=== PATIENT | male | born 1980 | race African-American/Black ===

== ENCOUNTER 2025-09-11 08:57 | Outpatient (AMB) | payer MEDICAID, SELFPAY ==
--- NOTE | 2025-09-11 09:09 | MHC.OFFVISWM ---
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 Allergies Penicillins Allergy (Unknown, Verified 09/11/25 09:31) Unknown Medication List - Last Reconciled 09/11/25 by Karthik Pickett MD amlodipine-valsartan 5-320 mg 1 tab PO DAILY atorvastatin (Lipitor) 20 mg PO DAILY blood-glucose sensor (FreeStyle Ignacio 2 Plus Sensor device) As directed levothyroxine 25 mcg PO DAILY sitagliptin phos-metformin 50-1,000 mg (Janumet) 1 tab PO BID HPI Comments Details: Previous weight loss efforts: Intermittent fasting, exercise Wakes up: 7am, Sleeps: 11pm Breakfast: 9am (2 eggs with toast, harman) Lunch: 1pm (salad with chicken) Dinner: 6pm (meatloaf) Snacks: 4pm (apple, sandwich) Exercise: has gym membership Beverages: Coffee:1/wk, Tea: rarely, Soda: none, Juice: rarely, ETOH: 1/month (3 beers) PFSH Medical History (Updated 09/11/25 @ 10:03 by Karthik Pickett MD) Hypothyroidism Hyperlipidemia Hypertension BMI 36.0-36.9,adult Obesity Surgical History (Updated 08/13/25 @ 11:21 by Carla Esquivel CMA) No history of previous surgery Family History (Updated 08/13/25 @ 11:22 by Carla Esquivel CMA) Mother Diabetes Hypertension Father Hypertension Diabetes Daughter No problems noted. Social History (Updated 08/13/25 @ 11:22 by Carla Esquivel CMA) Alcohol intake: current Alcohol intake frequency: holidays/special occasions only Patient Tobacco Use Status: Never used Tobacco Physical Exam Vital Signs: Last Vital Signs Temp 97.9 F 09/11/25 09:11 Pulse 84 09/11/25 09:11 BP 143/85 H 09/11/25 09:11 Pulse Ox 98 09/11/25 09:11 Oxygen Delivery Method Room Air 09/11/25 09:11 BMI result Body Mass Index 36.3 GI Inspection: Yes normal to inspection (mixed body habitus) and Yes obesity Palpation (GI): Soft to palpation Extrem Right lower extremity: normal to inspection Left lower extremity: normal to inspection Assessment & Plan Assessment & Plan (1) Obesity: Code(s): E66.9 - Obesity, unspecified Category: Medical Qualifiers: Obesity type: due to excess calories Obesity classification: adult class 2 (BMI 35 - 39.9) Serious obesity comorbidity presence: with serious comorbidity Body mass index: BMI 36.0-36.9 Qualified Code(s): E66.01 - Morbid (severe) obesity due to excess calories; Z68.36 - Body mass index [BMI] 36.0-36.9, adult Plan: 1. As we discussed, based on your present BMI you are approximately 70lbs overweight. In my opinion, for any weight loss strategy to be successful should have a high probability to help you lose at least 60lbs out of 70lbs of the extra weight you carry. We discussed in detail the available therapeutic options: 1) our lifestyle intervention program that has an average weight loss of 10% in 3 months.?Some patients continue it for longer and have lost over 50lbs but this is not common. Our lifestyle program can be provided by me. I will provide you with a link to use the chery if you choose to do so. We use protein shakes and protein bars to replace some of the meals of the day and cover your appetite better. We will decide together the exact combination. 2) Weight loss medications: these can be used in conjunction with our lifestyle program or you may choose to use them without following a lifestyle program from my program but your own. As we discussed, your insurance would approve it because you have diabetes. The medication I use more often is called Mosumiro and is one shot per week. My office will do the authorizations and we will train you how to use it properly. As we discussed, this is not a long distance operator solution, as most patients put all the weight back once they are off the medication. 3) We also discussed about the lap sleeve gastrectomy. In my opinion this is the best option to solve your problem based on your situation and should be used in conjunction with the two previous options. A good strategy to make this decision to proceed with surgery, as soon as you achieve a specific goal with the lifestyle intervention and medication options: to lose least 10% of your initial weight in 3 months. ?I emphasized the importance of close follow-up, adherence to instructions and good communication. The surgery does not replace the need to change your lifestlyle which is the cause of the obesity problem. The surgery provides the motivation to try again to change your lifestyle, it reduces the appetite and make the transition to a better lifestyle easier and doubles the amount of weight you would lose compared to doing the lifestyle change without the surgery. You will need to be on a liquid diet with protein shakes for 2 weeks before surgery to maximize weight loss and boost your nutritional status to recover better from surgery and also for the first two weeks after surgery to let the stomach heal before we introduce other foods. After the first 2 weeks we will introduce protein bars and soft foods like scrambled eggs, cottage cheese and yogurt and after the 6th week will introduce meat, fish and cooked vegetables in small amounts. Over time you should be able to eat everything in small amounts. Side effects like nausea, vomiting, heartburn or abdominal pain are not common in the practice unless you are not following in the practice. This operation requires lifetime commitment to following in our practice and communication with me. You will much less weight and experience side effects if you don?t communicate or not following in the practice. Complications are rare and in our practice is about 1/10 of the national average.
[2025-09-11 09:11] VITALS: BP 143/85; PULSE 84; TEMP 36.6; O2SAT 98; BMI 36.3
--- OUTSIDE RECORDS SUMMARY | 2025-09-11 09:35 | XMS_ITS | Clinical Summary ---
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 Name Role Phone Unavailable Primary Care Provider Unavailabl e Social History Tobacco Use Types Packs/Day Years Used Date Smoking Tobacco: Never Assessed Sex and Gender Information Value Date Recorded Sex Assigned at Not on file Legal Sex Male 9:29 PM EDT Gender Identity Not on file Sexual Orientation Not on file Plan of Treatment Health Maintenance Due Date Last Done Comments Depression Screening 1982 Lipid Panel 1982 SDOH Screening 1982 Disability Screening 1982 Alcohol/Substance Use Screening 1994 Tobacco Screening 1994 Family Planning (PISQ) 1997 HPV Vaccines (1 - Male 3-dos e series) 1997 Hepatitis C Screening 2000 Hepatitis B Vaccines (1 of 3 - 19+ 3-dose series) 2001 COVID-19 Vaccine ( - 2023-2 5 season) 2025 Influenza Vaccine (#1) 2025 Zoster Vaccines (1 of 2) 2032 DTaP/Tdap/Td Vaccines (2 - T d or Tdap) 06/15/2035 06/15/2025 RSV Patients and Pa tients Aged 60 years or older (1 - 1-dose 75+ series) 2057 HIV Screening Completed 09/04/2022 Pneumococcal Vaccine: Pediat rics (0 to 5 Years) and At-Risk Patients (6 to 49) Years Aged Out 05/22/2024 No longer eligi ble based on patient's age to complete this topic HIB Vaccines Aged Out No longer eligi ble based on patient's age to complete this topic Hepatitis A Vaccines Aged Out No long er eligible based on patient's age to complete this topic IPV Vaccines Aged Out No longer eligi ble based on patient's age to complete this topic Meningococcal B Vaccine Aged Out No l onger eligible based on patient's age to complete this topic Meningococcal Vaccine Aged Out No marissa sukhdev eligible based on patient's age to complete this topic RSV under 20 months Aged Out No longe r eligible based on patient's age to complete this topic Rotavirus Vaccines Aged Out No longer eligible based on patient's age to complete this topic
== END 2025-09-11 10:12 | disposition home or self-care (01) ==
LOC: HO.HBS 08:58
PROVIDERS: PCP Nurse Practitioner Family; Visit Provider Surgery
DX: E66.01 Morbid (severe) obesity due to excess calories (principal); Z68.36 Body mass index [BMI] 36.0-36.9, adult
CPT/HCPCS: 99204

== ENCOUNTER → 2025-09-11 08:57 | Outpatient (BNVA) | payer MEDICAID, SELFPAY | PROVIDERS: PCP Nurse Practitioner Family; Visit Provider Surgery | DX: E66.01 Morbid (severe) obesity due to excess calories (principal); Z68.36 Body mass index [BMI] 36.0-36.9, adult | CPT/HCPCS: 99202 ==

== ENCOUNTER 2025-09-24 11:17 | Outpatient (REF) | payer MEDICAID, SELFPAY ==
--- NOTE | ~2025-09-24 | XR_ITS ---
EXAMINATION: XR CHEST CLINICAL INFORMATION: E66.01 - Morbid (severe) obesity due to excess calories COMPARISON: None available. TECHNIQUE: PA and lateral views. FINDINGS: No hyperinflation. No consolidation, pleural effusion or pneumothorax. Cardiomediastinal silhouette size is normal. Mild multilevel spondylosis and a shaped curvature of the mid thoracic spine. XR/XR chest 2V IMPRESSION: No acute airspace disease. Spondylosis and scoliosis, mild. Electronically signed by: Jose Cervantes MD 09/24/2025 11:53 AM [facility]
[2025-09-24 11:40] LABS: MANUAL DIFF FLAG NO
[2025-09-24 12:00] LABS: Hematocrit 44.2 % (42.0-52.0); Hemoglobin 15.3 g/dl (14.0-18.0); Imm Gran Abs Auto 0.04 X10*3/uL (0.00-0.03); Imm Gran Pct Auto 0.5 % (0.0-0.4); Lymphocytes Absolute Auto 1.9 X10*3/uL (1.2-4.9); Mean Corpuscular HGB Conc 34.6 g/dl (31.0-36.0); Mean Corpuscular Hemoglobin 29.9 pg (27.0-33.0); Mean Corpuscular Volume 86.5 fL (80.0-98.0); NRBC Abs Auto 0.000 X10*3/uL (0.0-0.012); NRBC Pct Auto 0.0 /100WBC (0.0-0.2); Platelet Count 344 X10*3/uL (160-400); Red Blood Count 5.11 X10*6/uL (4.60-5.80); White Blood Count 7.5 X10*3/uL (4.8-10.8)
[2025-09-24 12:44] LABS: Alanine Aminotransferase 59 U/L (0-40); Albumin Level 5.1 g/dL (3.5-5.0); Alkaline Phosphatase 85 U/L (39-117); Anion Gap 13 (12-20); Aspartate Amino Transferase 35 U/L (5-37); Blood Urea Nitrogen 11 mg/dL (9-16); Calcium 9.7 mg/dL (8.4-10.2); Carbon Dioxide 26 mmol/L (22-29); Chloride 106 mmol/L (96-108); Cholesterol 115 mg/dL (<200); Estimated Glomerular Filt Rate > 60; HDL Cholesterol 39 mg/dL (>40); Iron 148 mcg/dL (45-160); Percent Iron Saturation 44 % (15-50); Potassium 4.2 mmol/L (3.3-5.1); Sodium 141 mmol/L (135-145); Total Iron Binding Capacity 334 mcg/dL (228-428); Total Protein 8.0 g/dL (6.5-8.0); Triglycerides 63 mg/dL (<150); Unsaturated Iron Binding 186 ug/dL
[2025-09-24 13:00] LABS: Ferritin 404 ng/mL (20-250)
[2025-09-24 13:15] LABS: Folate 13.3 ng/mL (> or = 4.0); Vitamin B12 803 pg/mL (200-900)
--- OUTSIDE RECORDS SUMMARY | 2025-09-24 14:25 | XMS_ITS | Clinical Summary ---
Author Organization [employer] Address [address] [facility] [address] [place] [address] Care Team Providers Care Team Supervisor Name Role Phone Unavailable Primary Care Provider [...] - 19+ 3-dose series) 2001 COVID-19 Vaccine (1 - 2024-2 6 season) 2025 Influenza Vaccine (#1) 2025 Zoster [...]
--- OUTSIDE RECORDS SUMMARY | 2025-09-24 14:25 | XMS_ITS | Clinical Summary ---
Author Organization [facility] Address [address] [place] [address] Care Team Providers Care Solvent Plant Treater Name Role Phone Rehan Enciso CELESTINO Primary Care Provider [phone] Source Comments PLEASE NOTE, if this patient is a minor, it may be UNLAWFUL to discuss sensitive information that is contained in these records (such as FAMILY PLANNING, MENTAL HEALTH or SUBSTANCE ABUSE) with the minor patient's parent or other person without the patient's specific authorization.[facility] Allergies Active Allergy Reactions Criticality Noted Date Comments Penicillin 08/23/2022 Medications blood-glucose meter (FREESTYLE LITE METER) monitoring kit once daily To test glucose 1 Each 07/18/20 22 Active lancing device misc 1 Device by miscellaneous route once daily 1 Each 07/18/20 22 Active lancets (FREESTYLE LANCETS) 28 gauge Check glucose once daily 100 Each 5 05/13/20 24 Active blood sugar diagnostic (FREESTYLE LITE STRIPS) strips 1 Each daily. 100 Each 05/13/20 24 Active alcohol swabs (ALCOHOL PADS) Use once daily. 100 Each 06/15/20 25 Active amlodipine-valsa rtan (EXFORGE) 5-320 mg per tabletIndication s:Essential hypertension Take 1 Tablet by mouth once daily. 90 Tablet 1 06/15/20 25 Active atorvastatin (LIPITOR) 20 mg tablet Take 1 Tablet by mouth nightly at bedtime. 90 Tablet 2 06/15/20 25 Active levothyroxine 25 mcg tabletIndication s:Hypothyroidism , unspecified type Take 1 Tablet by mouth every morning before breakfast. 90 Tablet 1 06/15/20 25 Active clotrimazole (LOTRIMIN) 1 % creamIndications :Diabetic foot Apply topically 2 (two) times daily. 30 g 1 06/15/20 25 Active blood-glucose sensor (FREESTYLE IGNACIO 2 PLUS SENSOR) deviIndications: Inadequately controlled diabetes mellitus Place 1 sensor to back of upper arm every 15 days. Use to monitor blood sugar continuously (Freestyle Ignacio 2 Plus). 2 Each 06/15/20 25 Active linagliptin-metf ormin (JENTADUETO) 2.5-1,000 mg tabIndications:T ype 2 diabetes mellitus with hyperglycemia, without long-term current use of insulin Take 1 Tablet by mouth 2 (two) times daily with a meal Switch from Janumet. 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 Overview (06/15/2025): Not able to check glucose due to needle phobia Anxiety 06/15/2025 Hypothyroidism 05/25/2024 Type 2 diabetes mellitus wit h hyperglycemia, without long-term current use of insulin 05/22/2024 Class 2 obesity due to exces s calories without serious comorbidity with body mass index (BMI) of 37.0 to 37.9 in adult 05/22/2024 Essential hypertension 04/24/2023 Encounters Date Type Department Care Team Description 08/07/2025 2:00 PM EDT Office Visit [facility] [address] [place] [phone] Abdirahman Salinas, PharmD 06/29/2025 1:40 PM EDT Office Visit [facility] [address] [facility] [place] [phone] Abdirahman Salinas, PharmD from Last 3 Months Immunizations Immunization Administration Dates Next Due PNEUMOCOCCAL CONJUGATE PCV 20 (Prevnar 20) 05/22 TDAP 06/15/2025 Family History Medical History Relation Name Comments No Known Problems Brother Stroke Father multiple No Known Problems Mother No Known Problems Sister Relation Name Status Comments Brother Father Alive Mother Alive Sister Social History Tobacco Use Types Packs/Day Years Used Date Smoking Tobacco: Never Smokeless Tobacco: Never Tobacco Cessation:Counseling Given: Yes Alcohol Use Standard Drinks/Week Comments Not Currently 0 (1 standard drink = 0.6 oz pur e alcohol) Social Connections Answer Date Recorded Connectedness 0 10/29/2023 Financial Resource Strain Answer Date R ecorded Financial Resource Strain 0 2022 Stress Answer Date Recorded Stress 0 10/29/2023 Physical Activity Answer Date Recorded Physical Activity 0 12/31/2020 Food Insecurity Answer Date Recorded Food 0 10/29/2023 Transportation Needs Answer Date Record ed Transportation 0 10/29/2023 Housing Stability Answer Date Recorded Housing 0 10/29/2023 Safety and Environment Answer Date Aaron rded Safety 0 10/29/2023 Utilities Answer Date Recorded Utilities 0 10/29/2023 Employment Answer Date Recorded Employment 0 12/31/2020 Sex and Gender Information Value Date Recorded Sex Assigned at Male 12/31/2020 12:43 PM PST Legal Sex Male 7:20 AM PST Gender Identity Male 12/31/2020 12:43 PM PST Sexual Orientation Straight 12/31/2020 12 :43 PM PST 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 Not on file Not on file N ot on file Last Filed Vital Signs Vital Sign Reading Time Taken Comments Blood Pressure 129/89 08/07/2025 2:25 PM EDT Pulse 89 08/07/2025 2:25 PM EDT Temperature 37 C (98.6 F) 08/07/2025 2:25 PM EDT Respiratory Rate 16 08/07/2025 2:25 PM EDT Oxygen Saturation 95% 08/07/2025 2:25 PM EDT Inhaled Oxygen Concentration - - Weight 108.1 kg (238 lb 6.4 oz) 08/07/2025 2:25 PM EDT Height 170.2 cm (5' 7 ) 06/29/2025 2:18 PM EDT Body Mass Index 37.34 06/29/2025 2:18 PM EDT Plan of Treatment Upcoming Encounters Date Type Department Care Team (Late st Contact Info) Description 09/25/2025 2:00 PM EST Office Visit [facility] [address] [place] [phone] Abdirahman Salinas, PharmD [address] [place] [address] Health Maintenance Due Date Last Done Comments Anxiety Screening 1982 Dental Examination 1982 Retinopathy Screening 1995 Imm-HPV (1 - 3-dose SCDM series) 2009 Alcohol and Drug Screen 11/12/2024 05/22/20, 04/24/2023, 08/23/2022, Additional history exists Depression Annual Screen 11/12/2024 05/22/2024 [id number] ( season) 2025 Imm-Influenza (#1) 2025 10/16/2012, 10/12/2005 Hemoglobin A1c 09/15/2025 06/15/2025, 05/12, 07/18/2022, Additional history exists Annual Wellness (Adult): Indicated (All Coverage) 06/15/2026 06/15/2025, 08/28/2023 Diabetes Foot Exam 06/15/2026 06/15/2025, 04/24/2023 Lipid Screening 06/15/2026 06/15/2025, 05/12, 07/18/2022 Serum Creatinine 06/15/2026 06/15/2025, 09/2024, 07/18/2022 TSH Monitoring 06/15/2026 06/15/2025, 05/12, 05/22/2024, Additional history exists Urine Albumin Creatinine Rat io Screening 06/15/2026 06/15/2025 Tobacco Screening 08/07/2026 08/07/2025, 07/07/2024 Imm-DTaP/Tdap/Td (3 - Td or Tdap) 06/15/2035 025, 06/13/2014 Imm-Hepatitis B Completed 04/02/2014, 07/15, 06/19/2005 HIV Screening Completed 09/04/2022 Hepatitis C Screening Completed 09/04/2022 Imm-Pneumococcal Completed 05/22/2024, 04/02/2014 Goals Goal Patient Goal Type Associated Problems Recent Progress Patient-Stated? Author monitor bp 1 x daily General Yes Rose Way RN Remain at or Below Target Blood Pressure General No Rose Way RN Note: 130/80 Hypertension: Decrease sodium intake General No Rose Way RN Procedures Procedure Name Priority Date/Time Associated Diagnosis Comments GLUCOSE, BLOOD BY GLUCOSE MONITORING DEVICE (CLIA WAIVED)POCT Routine 08/07/2025 2:48 PM EDT Type 2 diabetes mellitus with hyperglycemia, without long-term current use of insulin ([facility]) GLUCOSE, BLOOD BY GLUCOSE MONITORING DEVICE (CLIA WAIVED)POCT Routine 06/29/2025 2:56 PM EDT Type 2 diabetes mellitus with hyperglycemia, without long-term current use of insulin ([facility]) RFLX - TSH INTERPRETATION Routine 06/15/2025 1:50 PM EDT Inadequately controlled diabetes mellitus ([facility]) COMPREHENSIVE METABOLIC PANEL Routine 06/15/2025 1:50 PM EDT Examination, medical, general Inadequately controlled diabetes mellitus ([facility]) LIPID PANEL Routine 06/15/2025 1:50 PM EDT Examination, medical, general Inadequately controlled diabetes mellitus ([facility]) MICROALBUMIN/CREATININ E RATIO, URINE, RANDOM Routine 06/15/2025 1:50 PM EDT Examination, medical, general Inadequately controlled diabetes mellitus ([facility]) HEMOGLOBIN GLYCOSYLATED A1C Routine 06/15/2025 1:50 PM EDT Examination, medical, general Inadequately controlled diabetes mellitus ([facility]) HIV 1/2 AG & AB W/RFLX (4TH GEN) Routine 09/04/2022 10:45 AM EDT Screening examination for venereal disease HEPATITIS C AB W/RFLX HCV RNA, QT, RT PCR Routine 09/04/2022 10:45 AM EDT Screening examination for venereal disease from Last 3 Months or Most Recently Relevant to Health Maintenance Results * (ABNORMAL) GLUCOSE, BLOOD BY GLUCOSE MONITORING DEVICE (CLIA WAIVED)POCT Routine (08/07/2025 2:48 PM EDT) Only the most recent of2 resultswithin the time period is included. GLUCOSE 236(A) 70 - 100 mg/dL [facility] POCT Capillary Blood Blood / Unknown 2:48 PM EDT Abdirahman Rita PharmD LAB - BLOOD DRAW Final Resu lt Performing Organization Address City/[facility]/ZIP Co de Phone Number [facility] POCT * RFLX - TSH INTERPRETATION Routine (06/15/2025 1:50 PM EDT) Pathologist [facility] INTERPRETATION SEE NOTE 06/16/2025 7:35 PM EDT [employer] 06/15/2025 1:50 PM EDT 06/15/2025 1:51 PM EDT Narrative [employer] - 06/16/2025 7:39 PM EDT . TSH result is high, FT4 result is normal, TPO AB are elevated. Consistent with subclinical Hypothyroidism possibly due to Thyroiditis. Interference from heterophilic antibodies (more common) or autoantibody (less common) should be considered when the TSH value does not fit the clinical picture. TSH with HAMA Treatment (test code 35474) or TSH Antibody (test code 03687) may help identify such interferences. . Rehan Enciso REPORTING COORDINATOR LAB - NO BLOOD DRAW Final Result Performing Organization Address [facility]/[place] Co de Phone Number [employer] [address] [place] [address], [employer] [address] [place] [phone] * (ABNORMAL) MICROALBUMIN/CREATININE RATIO, URINE, RANDOM Urine Routine (06/15/2025 1:50 PM EDT) CREATININE, RANDOM URINE 58 20 - 320 mg/dL 06/16/2025 3:38 PM EDT [employer] MICROALBUMIN 13.5 mg/dL 06/16/2025 3:[address] [facility] MICROALBUMIN/CRE ATININE RATIO, RANDOM URINE 233(H) <30 mg/g creat 06/16/2025 3:38 PM EDT [employer] Urine Urine specimen / Unknown 06/15/2025 1:50 PM EDT 06/16/2025 7:52 AM EDT [employer] - 06/16/2025 3:58 PM EDT Reference Range Not established . The ADA defines abnormalities in albumin excretion as follows: . Albuminuria Category Result (mg/g creatinine) . Normal to Mildly increased <30 Moderately increased 30-299 Severely increased > OR = 300 . The ADA recommends that at least two of three specimens collected within a 3-6 month period be abnormal before considering a patient to be within a diagnostic category. Rehan Enciso [facility] URINE AMBULATORY Joaquina l Result Performing Organization Address [facility]/[place] Co de Phone Number [facility] [address] [place] [phone], [employer] [address] [place] [phone] * (ABNORMAL) HEMOGLOBIN GLYCOSYLATED A1C Routine (06/15/2025 1:50 PM EDT) HEMOGLOBIN A1C 11.2(H) <5.7 % 06/16/2025 5:02 AM EDT [employer] Blood Blood / Unknown 06/15/2025 1 :50 PM EDT 06/16/2025 1:54 AM EDT [employer] - 06/16/2025 5:11 AM EDT For someone without known diabetes, a hemoglobin A1c value of 6.5% or greater indicates that they may have diabetes and this should be confirmed with a follow-up test. . For someone with known diabetes, a value <7% indicates that their diabetes is well controlled and a value greater than or equal to 7% indicates suboptimal control. A1c targets should be individualized based on duration of diabetes, age, comorbid conditions, and other considerations. . Currently, no consensus exists regarding use of hemoglobin A1c for diagnosis of diabetes for children. . Rehan Enciso REPORTING COORDINATOR LAB - BLOOD DRAW Final Re sult [employer] [facility] [address] [address], [employer] [facility] [address] [place] [address] * (ABNORMAL) LIPID PANEL Routine (06/15/2025 1:50 PM EDT) [facility] CHOLESTEROL, TOTAL 212(H) <200 mg/dL 06/16/2025 8:10 AM EDT [facility] HDL CHOLESTEROL 52 > OR = 40 mg/dL 06/16/2025 8:10 AM EDT [employer] TRIGLYCERIDES 218(H) <150 mg/dL 06/16/2025 8:10 AM EDT [facility] LDL-CHOLESTEROL 124(H) mg/dL (calc) 06/16/2025 8:10 AM EDT [facility] CHOL/HDLC RATIO 4.1 <5.0 (calc) 06/16/2025 8:10 AM EDT [employer] NON-HDL CHOLESTEROL 160(H) <130 mg/dL (calc) 06/16/2025 8:[address] [facility] Blood Blood / Unknown 06/15/2025 1 :50 PM EDT 06/16/2025 6:09 AM EDT Narrative [employer] [facility] - 06/16/2025 8:23 AM EDT . If a non-fasting specimen was collected, consider repeat triglyceride testing on a fasting specimen if clinically indicated. Estelle et al. J. of Clin. Lipidol. 2015;9:129-169. . Reference range: <100 . Desirable range <100 mg/dL for primary prevention; <70 mg/dL for patients with CHD or diabetic patients with > or = 2 CHD risk factors. . LDL-C is now calculated using the Vahid calculation, which is a validated novel method providing better accuracy than the Friedewald equation in the estimation of LDL-C. Ren GONZALEZ et al. CAN. 2013;310(19): 5479-8539 (http://education.[employer]/faq/OOX154) For patients with diabetes plus 1 major ASCVD risk factor, treating to a non-HDL-C goal of <100 mg/dL (LDL-C of <70 mg/dL) is considered a therapeutic option. Rehan RizviZaria REPORTING COORDINATOR LAB - BLOOD DRAW Final Re sult [employer] [facility] [address] [address], [employer] [facility] [address] [place] [address] * (ABNORMAL) COMPREHENSIVE METABOLIC PANEL Routine (06/15/2025 1:50 PM EDT) GLUCOSE 321(H) 65 - 99 mg/dL 06/16/2025 8:10 AM [employer] [facility] UREA NITROGEN (BUN) 13 7 - 25 mg/dL 06/16/2025 8:10 AM [employer] [facility] CREATININE (blood) 0.84 0.60 - 1.29 mg/dL 06/16/2025 8:10 AM [employer] [facility] EGFR 111 > OR = 60 mL/min/1. 73m2 06/16/2025 8:10 AM [employer] [facility] BUN/CREATININE RATIO SEE NOTE: 6 - 22 (calc) 06/16/2025 8:10 AM [employer] [facility] SODIUM 133(L) 135 - 146 mmol/L 06/16/2025 8:10 AM [employer] [facility] POTASSIUM 4.4 3.5 - 5.3 mmol/L 06/16/2025 8:10 AM [employer] [facility] CHLORIDE 99 98 - 110 mmol/L 06/16/2025 8:10 AM [employer] [facility] CARBON DIOXIDE 25 20 - 32 mmol/L 06/16/2025 8:10 AM [employer] [facility] CALCIUM 10.1 8.6 - 10.3 mg/dL 06/16/2025 8:10 AM [employer] [facility] PROTEIN, TOTAL 7.7 6.1 - 8.1 g/dL 06/16/2025 8:10 AM [employer] [facility] ALBUMIN 4.7 3.6 - 5.1 g/dL 06/16/2025 8:10 AM [employer] [facility] GLOBULIN 3.0 1.9 - 3.7 g/dL (calc) 06/16/2025 8:10 AM [employer] [facility] ALBUMIN/GLOBULI N RATIO 1.6 1.0 - 2.5 (calc) 06/16/2025 8:10 AM EDT [employer] BILIRUBIN, TOTAL 0.4 0.2 - 1.2 mg/dL 06/16/2025 8:[address] [facility] ALKALINE PHOSPHATASE 100 36 - 130 U/L 06/16/2025 8:10 AM EDT [employer] AST 17 10 - 40 U/L 06/16/2025 8:10 AM EDT [employer] ALT 38 9 - 46 U/L 06/16/2025 8:[address] [facility] Blood Blood / Unknown 06/15/2025 1 :50 PM EDT 06/16/2025 6:09 AM EDT Narrative [employer] [facility] - 06/16/2025 8:23 AM EDT . Fasting reference interval . For someone without known diabetes, a glucose value >125 mg/dL indicates that they may have diabetes and this should be confirmed with a follow-up test. . Not Reported: BUN and Creatinine are within reference range. . Rehna Enciso REPORTING COORDINATOR LAB - BLOOD DRAW Final Re sult [employer] [address] [place] [address], [employer] [address] [phone] * HEPATITIS C AB W/RFLX HCV RNA, QT, RT PCR (09/04/2022 10:45 AM EDT) HEPATITIS C ANTIBODY NON-REACT JUAN NON-REACT JUAN [facility] [facility] SIGNAL TO CUT-OFF 0.09 <1.00 [employer] Comment: HCV antibody was non-reactive. There is no laboratory evidence of HCV infection. In most cases, no further action is required. However, if recent HCV exposure is suspected, a test for HCV RNA (test code 80603) is suggested. For additional information please refer to http://education.Codewise/faq/WUJ94p5 (This link is being provided for informational/ educational purposes only.) Blood Blood / Unknown 09/04/2022 1 0:45 AM EDT 09/04/2022 10:45 [address] [facility] - BLOOD DRAW Edited R esult - Final Performing Organization Address City/[facility]/ZIP Co de Phone Number [facility] [address] [address], [employer] [facility] [address],[place] [address] * HIV 1/2 AG & AB W/RFLX (4TH GEN) (09/04/2022 10:45 AM EDT) HIV AG/AB, 4TH GEN NON-REAC TIVE NON-REAC TIVE [facility] Comment: HIV-1 antigen and HIV-1/HIV-2 antibodies were not detected. There is no laboratory evidence of HIV infection. PLEASE NOTE: This information has been disclosed to you from records whose confidentiality may be protected by state law. If your state requires such protection, then the state law prohibits you from making any further disclosure of the information without the specific written consent of the person to whom it pertains, or as otherwise permitted by law. A general authorization for the release of medical or other information is NOT sufficient for this purpose. For additional information please refer to http://education.[employer].Agilvax/faq/FAU145 (This link is being provided for informational/ educational purposes only.) The performance of this assay has not been clinically validated in patients less than 2 years old. Blood Blood / Unknown 09/04/2022 1 0:45 AM EDT 09/04/2022 10:[address] [facility] - BLOOD DRAW Final Re sult [facility] [address] [address], [employer] [facility] [address],[facility] [place] [address] from Last 3 Months or Most Recently Relevant to Health Maintenance Insurance [employer] [facility] Care Teams Solvent Plant Treater Relationship Specialty Start Date End Date Rehan Enciso FNP [address] [place] [address] PCP - General Family Medicine, MAINTENANCE SPECIALIST 12/22/20
--- OUTSIDE RECORDS SUMMARY | 2025-09-24 14:25 | XMS_ITS ---
Author Organization [facility] Address [address] [place] [address] Care Team Providers Care Exhaust Tender Name Role Phone Rehan Enciso Primary Care Provider [phone] [phone] [id number] [facility] Program Status:Enrolled (Active) Start date:06/01/2023 Enrollment date:06/01/2023 Case Team Name Relationship Phone Rose Way RN(Responsible Staff) [phone] Continued Care and Services Coordination
== END 2025-09-24 11:18 | disposition home or self-care (01) ==
LOC: HO.XRAY 11:17
PROVIDERS: Visit Provider Surgery
DX: E66.01 Morbid (severe) obesity due to excess calories (principal); E03.9 Hypothyroidism, unspecified; E78.5 Hyperlipidemia, unspecified; I10 Essential (primary) hypertension; Z68.36 Body mass index [BMI] 36.0-36.9, adult
CPT/HCPCS: 36415; 71046; 80053; 80061; 82306; 82607; 82728; 82746; 83036; 83525; 83540; 84425; 84443; 84590; 84630; 85025; 86140

== ENCOUNTER → 2025-09-24 11:38 | Outpatient (BNV) | payer MEDICAID, SELFPAY | PROVIDERS: Visit Provider Radiology Diagnostic Radiology | DX: E66.01 Morbid (severe) obesity due to excess calories (principal); M47.814 Spondylosis without myelopathy or radiculopathy, thoracic region; M48.04 Spinal stenosis, thoracic region; Z68.36 Body mass index [BMI] 36.0-36.9, adult | CPT/HCPCS: 71046 ==

== ENCOUNTER 2025-10-07 13:54 | Outpatient (AMB) | payer OTHER, SELFPAY ==
--- NOTE | 2025-10-07 14:05 | A.OFFWM_ITS ---
Intake Intake Visit Reasons: OV BH Intake Allergies Penicillins Allergy (Unknown, Verified 09/11/25 09:31) Unknown [facility] Medical History (Updated 10/02/25 @ 19:25 by Karthik Pickett MD) Vitamin B1 deficiency Hypothyroidism Hyperlipidemia Hypertension BMI 36.0-36.9,adult Obesity Surgical History (Updated 08/13/25 @ 11:21 by Carla Esquivel CMA) No history of previous surgery Family History (Updated 08/13/25 @ 11:22 by Carla Esquivel CMA) Mother Diabetes Hypertension Father Hypertension Diabetes Daughter No problems noted. Social History (Updated 08/13/25 @ 11:22 by Carla Esquivel CMA) Alcohol intake: current Alcohol intake frequency: holidays/special occasions only Patient Tobacco Use Status: Never used Tobacco Behavioral Health Assessment Weight Management Therapy Therapy Notes Details The patient is a 45-year-old male presenting for a behavioral health assessment as part of a surgical weight loss program. He was initially referred by his primary care provider. The patient?s primary goal is to achieve better co ntrol over his hunger. Presenting Concerns Referral Source WMP-Provider Reason for referral Completion of behavioral health assessment as part of process for weight-loss surgery. Precipitating Event Obesity Living Situation Current Living Situation Rent At risk of losing current housing? Yes Satisfied with current living situation? No Comments PT lives with his girlfriend. Food/Weight/Diet Expectations of change PT started the program at 231Lbs and reports his weight today was 229Lbs. Initial goal is to lose 10% of his weight before surgery. PT is implementing the following: Current meal plan: Haven't started the plan but the Dr already provided one. Exercise plan: cardio/weight lifting, 4-5 days at week. Scale: yes Communication w/ provider: . History/Relationship with food The patient reports previously consuming approximately six meals per day, frequently dining out, and experiencing hunger every 2?3 hours. He estimates spending around $150 daily on food. In the weeks leading up to enrollment in the program, he became increasingly mindful of his eating habits and began making healthier food choices. Example of meals before starting the program: Breakfast: 9am (2 eggs with toast, harman) Lunch: 1pm (salad with chicken) Dinner: 6pm (meatloaf, pizza, [employer], Polish food) Snacks: 4pm (apple, sandwich) Beverages: Coffee:1 at day with half and half and 2 Splendas. Tea: rarely. Soda: 2 littler at day/ has been working on cutting in several weeks. Juice: rarely, Gatorade 0 once in a while. ETOH: 1/month (3 beers). History/Relationship with weight Denies being obese in childhood. PT repots he gained a lot of weight around 50Lbs when went to group home in 2003. In the last 10 years, the patient's Lowest weight was 218Lbs and highest 250Lbs. History/Relationship with dieting Fasting, Gym, Binge Eating Do you frequently eat large amounts of food in short periods of time, not feeling physically hungry? Yes Do you feel out of control when you eat a large amount of food in a short period of time? No Do you eat large amounts of food rapidly and typically alone? Yes Night Eating Do you wake up at least once during the night to eat? No If you wake up in the night, do you find that it is necessary to eat something in order to fall back asleep? No Do you have little or no appetite in the morning and feel very hungry in the evening, often overeating between dinner and when you go to bed? No Social History Family history and relationship PT is in a long-term relationship for the last 10 years. They don't have kids together. He has a 17 y/o daughter. Parents alive, he has 6 brothers and 3 sisters. PT reports good family dynamics. Parental/Familial tub attendant obligations None. 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 Had an IEP in school. Social support Girlfriend. Some friends. Community support None. Congregation/Spirituality None. Cultural/Ethnic information . Born in [place]. Legal Involvement and History Current or historical involvement with the legal system? None. Education Highest grade completed 9th. Preferred learning style Learn by doing Currently enrolled in educational program? No Interested in further educational program? Yes Educational Interests/Skills Would like to do trade school. Employment Employment Status Other (Self-employee - cleaning business. ) Wants help to find employment? No Meaningful activities lately going to the gym. Financial Situation Describe current financial situation Occasional struggle Financial assistance? None Service Service? No Mental Health and Addiction Treatment Current/Past substance abuse? No Comments Alcohol: 1x month, socially. 2-3 beers. Cigarettes/Tobacco: None Cannabis/Edibles: Smoke, daily 3 x day. 3 grams at day. Current/Past addictive behavior concerns? No Psychiatric history The patient reports he is not currently engaged in any mental health treatment and denies any history of mental health crises or psychiatric inpatient admissions. He also denies any past or current suicidal ideation, suicide attempts, self-harm, or thoughts of harming others. Medical and Physical Health Summary Additional Medical History not covered in history None aditional Sexual History concerns None reported. Physical exam in the last year? Yes Pain Screening Current pain? No Pain in the last few months? No Medications Is the patient compliant with medications? Yes Does the patient have [facility] Guardian in place? Not applicable Does the patient use complimentary health approaches? Yes (Medical cannabis. ) Trauma/Abuse History History of trauma? No Questionnaires PHQ-9 Over the last 2 weeks, how often have you been bothered by any of the following problems? 1. Little interest or pleasure in doing things: not at all 2. Feeling down, depressed, or hopeless: not at all 3. Trouble falling or staying asleep, or sleeping too much: not at all 4. Feeling tired or having little energy: several days 5. Poor appetite or overeating: not at all 6. Feeling bad about yourself - or that you are a failure or have let yourself or your family down: not at all 7. Trouble concentrating on things, such as reading the newspaper or watching television: several days 8. Moving or speaking so slowly that other people could have noticed. Or the opposite - being so fidgety or restless that you have been moving around a lot more than usual: not at all 9. Thoughts that you would be better off or of hurting yourself in some way: not at all Total score: 2 Depression Screening Interpretation: Negative (Initial score from new PT pack was 7. ) Depression Screening Done: Yes 24702 - PHQ-9 Billing: Yes Source: Developed by Drs. Lorenzo Mullen, Shyanne Aponte, Rinku Sanford and colleagues, with an educational cade from [employer]. Binge Eating Scale Group 1 A. I don't feel self-conscious about my wt. or body size when I'm with others. B. I feel concerned about how I look to others, but it normally does not make me fell disappointed with myself C. I do get self-conscious about my appearance and wt. which makes me feel disappointed in myself. D. I feel very self-conscious about my wt. and frequently I feel intense shame a nd disgust for myself. I try to avoid social contacts because of my self- consciousness. Response Group 1: B Group 2 A. I don't have any difficulty eating slowly in the proper manner. B. Although I seem to gobble down foods, I don't end up feeling stuffed because of eating to much. C. At times, I tend to eat quickly and then, I feel uncomfortably full afterwards. D. I have the habit of bolting down my food, without really chewing it. When this happens I usually feel uncomfortably stuffed because I've eaten to much. Response Group 2: B Group 3 A. I feel capable to control my eating urges when I want to. B. I feel like I have failed to control my eating more than the average person. C. I feel utterly helpless when it comes to feeling in control of my eating urges. D. Because I feel so helpless about controlling my eating I have become very desperate about trying to get control. Response Group 3: B Group 4 A. I don't have the habit of eating when I'm bored. B. I sometimes eat when I'm bored, but often I'm able to get busy and get my mind off food. C. I have a regular habit of eating when I'm bored, but occasionally, I can use some other activity to get my mind off eating. D. I have a strong habit of eating when I'm bored. Nothing seems to help me breath the habit. Response Group 4: B Group 5 A. I'm usually physically hungry when I eat something. B. Occasionally, I eat something on impulse even though I really am not hungry. C. I have the regular habit of eating foods, that I might not really enjoy, to satisfy a hungry feeling even though physically, I don't need the food. D. Although I'm not physically hungry, I get a hungry feeling in my mouth that only seems to be satisfied when I eat a food, like sandwich, that fills my mouth. Sometimes, when I eat the food to satisfy my mouth hunger, I then spit the food out so I won't gain weight. Response Group 5: B Group 6 A. I don't feel any guilt or self-hate after I overeat. B. After I overeat, occasionally I feel guilt or self-hate. C. Almost all the time I experience strong guilt or self-hate after I overeat. Response Group 6: A Group 7 A. I don't lose total control of my eating when dieting even after periods when I overeat. B. Sometimes when I eat a forbidden food on a diet, I feel like I blew it and eat even more. C. Frequently, I have the habit of saying to myself, I've blown it now, why not go all the way, when I overeat on a diet. When that happens I eat more. D. I have a regular habit of starting a strict diets for myself but I break the diets by going on an eating binge. My life seems to be either a feast or famine. Response Group 7: B Group 8 A. I rarely eat so much food that I feel uncomfortably stuffed afterwards. B. Usually about once a month, I each such a quantity of food, I end up feeling very stuffed. C. I have regular periods during the month when I eat large amounts of food, either at mealtime or at snacks. D. I eat so much food that I regularly feel quite uncomfortable after eating and sometimes a bit nauseous. Response Group 8: A Group 10 A. I usually am able to stop eating when I want to. I know when enough is enough. B. Every so often, I experience a compulsion to eat which I can't seem to control. C. Frequently, I experience strong urges to eat which I seem unable to control, but at other times I can control my eating urges. D. I feel incapable of controlling urges to eat. I have a fear of not being able to stop eating voluntarily. Response Group 10: A Group 11 A. I don't have any problem stopping eating when I feel full. B. I usually can stop eating when I feel full but occasionally overeat leaving me feeling uncomfortably stuffed. C. I have a problem stopping eating once I start and usually I feel uncomfortably stuffed after I eat a meal. D. Because I have a problem not being able to stop eating when I want, I sometimes have to induce vomiting to relieve my stuffed feeling. Response Group 11: A Group 12 A. I seem to eat just as much when I'm with others, Family social gatherings as when I'm by myself. B. Sometimes, when I'm with other persons, I don't eat as much as I want to eat because I'm self-conscious about my eating. C. Frequently, I eat only a small amount of food when others are present, because I'm very embarrassed about my eating. D. I feel so ashamed about overeating that I pick times to overeat when I know no one will see me. I feel like a closet eater. Response Group 12: A Group 13 A. I eat three meals a day with only an occasional between meal snack. B. I eat 3 meals a day, but I also normally snack between meals. C. When I am snacking heavily, I get in the habit of skipping regular meals. D. There are regular periods when I seem to be continually eating, with no planned meals. Response Group 13: A Group 14 A. I don't think much about trying to control unwanted eating urges. B. At least some of the time, I feel my thoughts are pre-occupied with trying to control my eating urges. C. I feel that frequently I spend much time thinking about how much I ate or about trying not to eat anymore. D. It seems to me that most of my waking hours are pre-occupied by thoughts about eating or not eating. I feel like I'm constantly struggling not to eat. Response Group 14: B Group 15 A. I don't think about food a great deal. B. I have strong craving for food but they last only for brief periods of time. C. I have days when I can't seem to think about anything else but food. D. Most of my days seem to be pre-occupied with thoughts about food. I feel like I live to eat. Response Group 15: B Group 16 A. I usually know whether or not I'm physically hungry. I take the right portion of food to satisfy me. B. Occasionally, I feel uncertain about knowing whether or not I'm physically hungry. A these times it's hard to know how much food I should take to satisfy me. C. Even though I might know how many calories I should eat, I don't have any idea what is a normal amount of food for me. Response Group 16: C Binge Eating Score: 10 Score less than 17 Minimal Risk Score between 18-26 Moderate Risk Score between 27-46 High Risk Assessment & Plan Assessment & Plan (1) Adjustment disorder: Code(s): F43.20 - Adjustment disorder, unspecified Qualifiers: Adjustment disorder type: unspecified type Qualified Code(s): F43.20 - Adjustment disorder, unspecified (2) Pre-bariatric surgery psychological evaluation: Code(s): Z71.89 - Other specified counseling Plan Following a comprehensive behavioral health assessment?including review of the Binge Eating Scale, PHQ-9, mental status evaluation, and patient self- report?there are currently no behavioral health contraindications to proceeding with bariatric surgery. The patient demonstrates appropriate insight, motivation, and psychological readiness for the procedure. No active psychiatric symptoms or maladaptive eating behaviors were identified that would impede surgical outcomes at this time. The patient is cleared from a behavioral health perspective to proceed with bariatric surgery and documentation can be submitted for insurance approval as indicated. PT will return for a follow-up behavioral health visit 1?4 weeks postoperatively to monitor psychological adjustment, reinforce coping strategies, and screen for any emerging concerns such as mood changes, adjustment difficulties, or disordered eating patterns. Additional behavioral health support will be provided as needed based on postoperative assessment. Next chery: 1-4 weeks PO[place] [address] Psy Diag Eval Patient Type New Diagnoses Adjustment disorder, unspecified type F43.20 Adjustment disorder type: unspecified type Pre-bariatric surgery psychological evaluation Z71.89 Additional Codes PHQ-9 - 53306 - PHQ-9 Billing: Yes ([id number]) Time Spent (min) 60
--- OUTSIDE RECORDS SUMMARY | 2025-10-07 16:56 | XMS_ITS | Clinical Summary ---
Author Organization [employer] Address [address] [place] [address] Care Team Providers Care Vice President Tax Name Role Phone Unavailable Primary Care Provider [...]
== END 2025-10-07 15:06 | disposition home or self-care (01) ==
LOC: HO.HBST 13:54
PROVIDERS: Visit Provider Counselor Mental Health
DX: F43.20 Adjustment disorder, unspecified (principal); Z71.89 Other specified counseling
CPT/HCPCS: 90837